=== PATIENT | male | born 1970 | race Hispanic/Latino ===

== ENCOUNTER 2017-04-27 11:53 | Emergency (ER) | payer MEDICAID ==
[2017-04-27 12:07] VITALS: RESP 18; O2SAT 98
[2017-04-27] MEDS ORDERED: DiphenhydrAMINE 50 mg/ml Inj ONE (12:13)
[2017-04-27] MEDS ORDERED: Sodium Chloride 0.9% 1,000 ML IV ONE (12:17)
[2017-04-27] MEDS ORDERED: DiphenhydrAMINE 50 mg/ml Inj IVP STA (12:19)
--- NOTE | 2017-04-27 12:28 | C.PDOC ---
History Of Present Illness 46 yr old male presents to the ER for evaluation of sudden onset of generalized itchiness, associated with redness of the skin which started 20 minutes after eating breakfast. Patient denies history of allergic reaction to food, or eating new foods. Patient states he took 1 dose of unknown antibiotic for " tooth pain" this AM prior to breakfast. Patient denies fever, chills, headache, dizziness, mouth swelling, throat swelling, throat tightness, coughing, chest pain, SOB, wheezing, nausea, vomiting, weakness or numbness. Ambulate to ED for evaluation, not in resp. distress. Time Seen by Provider: 04/27/17 12:11 Chief Complaint (Nursing): Allergic Reaction History Per: Patient History/Exam Limitations: no limitations Onset/Duration Of Symptoms: Sudden Onset Possible Cause: Medication (Unknown antibiotic) Past Medical History Reviewed: Historical Data, Nursing Documentation, Vital Signs Vital Signs: Last Vital Signs Temp 98.6 F 04/27/17 13:00 Pulse 68 04/27/17 13:00 Resp 18 04/27/17 13:00 BP 124/80 04/27/17 13:00 Pulse Ox 98 04/27/17 13:00 Family History: States: No Known Family Hx - Social History Hx Alcohol Use: No Hx Substance Use: No - Immunization History Hx Tetanus Toxoid Vaccination: No Hx Influenza Vaccination: No Hx Pneumococcal Vaccination: No Review Of Systems Except As Marked, All Systems Reviewed And Found Negative. Constitutional: Negative for: Fever, Chills ENT: Negative for: Mouth Swelling, Throat Swelling Cardiovascular: Negative for: Chest Pain Respiratory: Negative for: Cough, Shortness of Breath, Wheezing Gastrointestinal: Negative for: Nausea, Vomiting Skin: Positive for: Rash (Generalized itchy and redness.) Neurological: Negative for: Weakness, Numbness Physical Exam - Physical Exam Appears: Non-toxic, No Acute Distress Skin: Warm, Dry, Other ((+) Generalized skin erythema. No edema.) Head: Normacephalic Eye(s): bilateral: PERRL Ear(s): Bilateral: Normal Nose: No Flaring, No Discharge Oral Mucosa: Moist, No Drooling Tongue: Normal Appearing, No Swelling Lips: Normal Appearing, No Swelling Throat: No Erythema, No Exudate, No Drooling, Other (Uvula midline, no edema.) Neck: Trachea Midline, Supple Chest: Symmetrical, No Tenderness Cardiovascular: Rhythm Regular, No Murmur Respiratory: No Decreased Breath Sounds, No Rales, No Rhonchi, No Stridor, No Wheezing Gastrointestinal/Abdominal: Soft, No Tenderness Back: No CVA Tenderness Extremity: Normal ROM, No Pedal Edema, No Swelling Neurological/Psych: Oriented x3, Normal Speech, Normal Motor, Normal Sensation, Normal Reflexes ED Course And Treatment O2 Sat by Pulse Oximetry: 98 (RA) Pulse Ox Interpretation: Normal Progress Note: On re-evaluation, pt is afebrile, hemodynamicaly stable. non- toxic. Tolerate Po well in ED. Pt reports moderate improvement in sx. PulsEOx 98% RA. Skin: moderate improvement in generalized body erythema, almost cleared skin. No cellulitis. ENT: no acute findings. Uvula midline, no edema. No drooling. neck: Supple, (-) JVD. Lungs: CTA B/L, BS equal B/L. CVS: (+) S1S2, reg. Abd: benign. Neurologicaly intact. Pt has clinical findings c/w diffuse urticaria likely sec to antibiotic use. Pt advised and ref to F/u with PMD, Classifier Tender in 2-3 days for re-eavl. return to ED if any oorsening or new changes. Pt understand and agrees with discharges. Medical Decision Making Medical Decision Making: PLAN: * Benadryl IVP * Pepcid IVP * Prednisolone IVP * Sodium Chloride IV Disposition Counseled Patient/Family Regarding: Diagnosis, Need For Followup, Rx Given - Disposition Referrals: [facility] at [facility] [Outside] Disposition Time: 13:36 Condition: STABLE Additional Instructions: STOP ANTIBIOTIC IMMEDIATELY AND AVOID IN FUTURE DUE TO SEVERE ALLERGIC REACTION TAKE MEDICATION PRESCRIBED FOLLOW UP WITH PMD, [facility] IN 2-3 DAYS FOR RE-EVALUATION. RETURN TO ED IF ANY WORSENING OR NEW CHANGES. Prescriptions: DiphenhydrAMINE [Benadryl] 25 mg PO BID #10 cap Famotidine [Pepcid] 20 mg PO BID #10 tab Prednisone [Deltasone] 60 mg PO DAILY #9 tablet Instructions: Urticaria (GEN), Allergies (ED) Forms: [employer] (Armenian) - Clinical Impression Clinical Impression: Allergic urticaria - PA / CERTIFIED RECREATIONAL THERAPIST / Resident Statement MD/DO has reviewed & agrees with the documentation as recorded. - Scribe Statement The provider has reviewed the documentation as recorded by the Scribtiffanie Larose All medical record entries made by the Ely were at my direction and personally dictated by me. I have reviewed the chart and agree that the record accurately reflects my personal performance of the history, physical exam, medical decision making, and the department course for this patient. I have also personally directed, reviewed, and agree with the discharge instructions and disposition.
[2017-04-27] MEDS ORDERED: Albuterol-Ipratrop 3 mg / 0.5 (3 ml) UD ONE (12:34)
[2017-04-27] MEDS ORDERED: Sodium Chloride 0.9% 1,000 ML ONE (12:38)
[2017-04-27 13:01] VITALS: TEMP 98.6
[2017-04-27 14:39] VITALS: BP 124/75; PULSE 75
== END 2017-04-27 14:39 | disposition home or self-care (01) ==
LOC: C.ER 11:53
DX: L50.0 Allergic urticaria (principal)
CPT/HCPCS: 96361; 96374; 96375; 99284; J1200; J2930; J7040

== ENCOUNTER 2017-08-06 09:55 | Emergency (ER) | payer MEDICAID ==
--- NOTE | 2017-08-06 11:06 | C.PDOC ---
History Of Present Illness 47yo male with no known cardiac history, presents to ER with complaint of chest pain. Contrary to triage note, patient reports his chest pain has been present for the past 4 days. He states the pain comes and goes, but is more frequent now. He reports the pain is 5/10 and worsens when he twists his torso or takes a deep breath. He reports similar instances of pain in the past but states this instance is the longest and most painful. He denies nausea, vomiting, diarrhea, diaphoresis, SOB, injury or trauma to his chest; also denies lifting heavy objects recently. Time Seen by Provider: 08/06/17 10:28 Chief Complaint (Nursing): Chest Pain History Per: Patient History/Exam Limitations: no limitations Onset/Duration Of Symptoms: Days (4), Intermittent Episodes Current Symptoms Are (Timing): Still Present Pain Scale Rating Of: 5 Quality: "Pain" Exacerbating Factors: Turning, Deep Breathing Additional History Per: Patient Past Medical History Reviewed: Historical Data, Nursing Documentation, Vital Signs Vital Signs: Last Vital Signs Temp 98 F 08/06/17 12:04 Pulse 73 08/06/17 12:04 Resp 17 08/06/17 12:04 BP 125/85 08/06/17 12:04 Pulse Ox 97 08/07/17 21:25 - Medical History PMH: Hepatitis (Hep C) Surgical History: No Surg Hx Family History: States: CAD (father) - Social History Hx Tobacco Use: Yes (smoker for 30 years, 6 cigarettes a day) Hx Alcohol Use: No Hx Substance Use: No - Immunization History Hx Tetanus Toxoid Vaccination: No Hx Influenza Vaccination: No Hx Pneumococcal Vaccination: No Review Of Systems Except As Marked, All Systems Reviewed And Found Negative. Cardiovascular: Positive for: Chest Pain Respiratory: Negative for: Shortness of Breath Physical Exam - Physical Exam Appears: Non-toxic, No Acute Distress Skin: Normal Color, Warm, No Rash Head: Atraumatic, Normacephalic Eye(s): bilateral: Normal Inspection, PERRL, EOMI Oral Mucosa: Moist Neck: Normal ROM, Supple Chest: Symmetrical, No Tenderness, No Ecchymosis, No Subcutaneous Emphysema Cardiovascular: Rhythm Regular, No Friction Rub, No Murmur Respiratory: Normal Breath Sounds, No Rales, No Rhonchi, No Wheezing Gastrointestinal/Abdominal: Normal Exam, Soft, No Tenderness Back: Normal Inspection, No CVA Tenderness Extremity: Normal ROM, No Swelling Neurological/Psych: Oriented x3, Normal Speech, Normal Cognition, Normal Motor Gait: Steady ED Course And Treatment - Laboratory Results Result Diagrams: 08/06/17 11:05 08/06/17 11:05 ECG: Interpreted By Me, Viewed By Me ECG Rhythm: Sinus Rhythm ECG Interpretation: Normal Interpretation Of ECG: Normal axis Rate From EC (BPM) O2 Sat by Pulse Oximetry: 97 (RA) Pulse Ox Interpretation: Normal - Other Rad CXR X-Ray: Viewed By Me, Read By Radiologist Interpretation: HISTORY: chest pain. COMPARISON: None available. TECHNIQUE: Chest, one view. FINDINGS: LUNGS: No focal consolidation. Please note that chest x-ray has limited sensitivity for the detection of pulmonary masses. PLEURA: No significant pleural effusion identified. No definite pneumothorax . CARDIOVASCULAR: The cardiomediastinal silhouette appears within normal limits of size. OSSEOUS STRUCTURES: No acute osseous abnormality identified. VISUALIZED UPPER ABDOMEN: Unremarkable. OTHER FINDINGS: None. IMPRESSION: No focal consolidation, significant pleural effusion, or definite pneumothorax identified. Medical Decision Making Medical Decision Making: Plan: -- EKG -- CXR -- Labs Time: 1156 Labs reviewed and within normal limits. Patient has been having symptoms greater than 3 days and patient's symptoms are pleuritic in nature. CXR reviewed and shows no acute disease. On re-exam, the patient reports improvement of symptoms. Lungs are CTA, heart is RRR, abdomen is soft, non- tender and tolerating PO well. Ambulatory in the ED steady gait. Follow up with the medical doctor within 1-2 days. Return if worsened. Disposition - Disposition Referrals: [facility] at [facility] [Outside] Disposition: HOME/ ROUTINE Disposition Time: 12:07 Condition: GOOD Additional Instructions: Follow up with the medical doctor within 1-2 days withotu fail, return if worsened,. Prescriptions: Naproxen [Naprosyn] 500 mg PO BID #20 tab Instructions: Costochondritis Forms: [employer] (Nigerian) - Clinical Impression Clinical Impression: Pleuritic pain, Costochondritis - PA / RAISED PRINTER / Resident Statement MD/DO has reviewed & agrees with the documentation as recorded. - Scribe Statement The provider has reviewed the documentation as recorded by the Scribe (Serena Zuniga) Provider Attestation: All medical record entries made by the Scribe were at my direction and personally dictated by me. I have reviewed the chart and agree that the record accurately reflects my personal performance of the history, physical exam, medical decision making, and the department course for this patient. I have also personally directed, reviewed, and agree with the discharge instructions and disposition.
[2017-08-06 11:10] LABS: BASO % 0.5 % (0.0-2.0); EOS # 0.1 K/uL (0.0-0.7); EOS % 1.5 % (0.0-4.0); HEMOGLOBIN 17.2 g/dL (12.0-18.0); LYMPH # 2.3 K/uL (1.0-4.3); LYMPH % 34.9 % (20.0-40.0); MEAN CELL VOLUME 94.8 fL (80.0-94.0); MEAN CORPUSCULAR HGB CONC 34.8 g/dL (33.0-37.0); MEAN PLATELET VOLUME 8.4 fL (7.2-11.7); MONO # 0.7 K/uL (0.0-0.8); MONO % 10.7 % (0.0-10.0); NEUT # 3.5 K/uL (1.8-7.0); NEUT % 52.4 % (50.0-75.0); NRBC % 0.1 % (0.0-2.0); RBC 5.22 Mil/uL (4.40-5.90); RED CELL DISTRIBUTION WIDTH 12.9 % (11.5-14.5); WHITE BLOOD COUNT 6.7 K/uL (4.8-10.8)
[2017-08-06 11:23] LABS: ALB/GLOB RATIO 1.1 (1.0-2.1); ALBUMIN 4.4 g/dL (3.5-5.0); ALT/SGPT 69 U/L (21-72); AST/SGOT 69 U/L (17-59); BLOOD UREA NITROGEN 14 mg/dL (9-20); CALCIUM 9.9 mg/dl (8.6-10.4); GFR AFRICAN-AMERICAN > 60; GFR NON-AFRICAN AMERICAN > 60
[2017-08-06 11:35] LABS: B-TYPE NATRIURETIC PEPTIDE 22.6 pg/mL (0-450)
--- NOTE | 2017-08-06 11:50 | RAD ---
HISTORY: chest pain COMPARISON: None available. TECHNIQUE: Chest, one view. FINDINGS: LUNGS: No focal consolidation. Please note that chest x-ray has limited sensitivity for the detection of pulmonary masses. PLEURA: No significant pleural effusion identified. No definite pneumothorax . CARDIOVASCULAR: The cardiomediastinal silhouette appears within normal limits of size. OSSEOUS STRUCTURES: No acute osseous abnormality identified. VISUALIZED UPPER ABDOMEN: Unremarkable. OTHER FINDINGS: None. IMPRESSION: No focal consolidation, significant pleural effusion, or definite pneumothorax identified.
[2017-08-06 12:05] VITALS: BP 125/85; PULSE 73; RESP 17; TEMP 98
[2017-08-06 12:10] VITALS: O2SAT 97
--- NOTE | 2017-08-07 20:11 | CARD ---
APPROVED REPORT EKG Measurement Heart [id number] <Conclusion> Normal sinus rhythm Normal ECG
== END 2017-08-06 12:38 | disposition home or self-care (01) ==
LOC: C.ER 09:55
DX: M94.0 Chondrocostal junction syndrome [Tietze] (principal); R07.81 Pleurodynia
CPT/HCPCS: 71045; 80053; 83880; 84484; 85025; 93005; 96374; 99284; J1885

== ENCOUNTER 2017-08-24 19:49 | Emergency (ER) | payer MEDICAID ==
[2017-08-24 19:56] VITALS: BP 156/95; PULSE 84; RESP 20; TEMP 98; O2SAT 95
--- NOTE | 2017-08-24 20:41 | C.PDOC ---
History Of Present Illness 47 y/o male presents to the ED complaining of back pain s/p fall around 5PM today. States he was 2 steps up on ladder, lifting a 5 gallon can of paint, when he turned and felt a sharp pain in his back. This caused him to fall off the ladder and land on buttocks, falling backwards onto his back. Pain is non- radiating. No numbness, tingling, or incontinence of bowel/bladder. Patient took 2 tabs of Advil with minimal relief. No head trauma or LOC. Time Seen by Provider: 08/24/17 19:57 Chief Complaint (Nursing): Back Pain History Per: Patient History/Exam Limitations: no limitations Onset/Duration Of Symptoms: Hrs Current Symptoms Are (Timing): Still Present Past Medical History Reviewed: Historical Data, Nursing Documentation, Vital Signs Vital Signs: Last Vital Signs Temp 98 F 08/24/17 19:51 Pulse 84 08/24/17 19:51 Resp 20 08/24/17 19:51 BP 156/95 H 08/24/17 19:51 Pulse Ox 95 08/24/17 20:44 - Medical History PMH: Hepatitis (Hep C) Other Surgeries: "Skull surgery" Family History: States: CAD (father) - Social History Hx Tobacco Use: Yes (smoker for 30 years, 6 cigarettes a day) Hx Alcohol Use: No Hx Substance Use: No - Immunization History Hx Tetanus Toxoid Vaccination: No Hx Influenza Vaccination: No Hx Pneumococcal Vaccination: No Review Of Systems Genitourinary: Negative for: Incontinence Musculoskeletal: Positive for: Back Pain. Negative for: Neck Pain Neurological: Negative for: Weakness, Numbness (and tingling), Headache, Other ( LOC) Physical Exam - Physical Exam Appears: No Acute Distress Skin: No Rash Head: Atraumatic, Normacephalic Eye(s): bilateral: PERRL, EOMI Oral Mucosa: Moist Neck: Normal ROM, No Midline Cervical Tenderness, No Paracervical Tenderness, Supple Chest: No Tenderness Cardiovascular: Rhythm Regular, No Murmur Respiratory: No Rales, No Rhonchi, No Wheezing, Other (Lungs clear to auscultation) Back: No Vertebral Tenderness, Muscle Spasm (right paralumbar), Paraspinal Tenderness (to the right paralumbar area) Extremity: No Calf Tenderness, No Swelling Neurological/Psych: Normal Speech, Normal Cranial Nerves, Normal Motor, Normal Sensation, Other (Alert, no focal deficits) ED Course And Treatment O2 Sat by Pulse Oximetry: 95 (RA) Pulse Ox Interpretation: Normal Medical Decision Making Medical Decision Making: Time: 20:26 Plan: Toradol and Flexeril given in the ED. Disposition Counseled Patient/Family Regarding: Diagnosis, Need For Followup, Rx Given - Disposition Referrals: [facility] [Outside] Disposition: HOME/ ROUTINE Disposition Time: 20:53 Condition: GOOD Additional Instructions: Please take medication as prescribed. Do not drive, work or operate machinery while taking muscle relaxant. When you go back to work, take it at bedtime only. Cold compresses to lower back for the first 24 hours, then switch to warm compresses. No heavy lifting. Follow up with your doctor in a few days. Return to ER for any worse symptoms. Prescriptions: Cyclobenzaprine [Cyclobenzaprine HCl] 10 mg PO Q8 #9 tab Ibuprofen [Motrin] 600 mg PO TID #30 tab Instructions: Muscle Spasms (DC) Forms: [employer] (Slovenian) - Clinical Impression Clinical Impression: Lumbar paraspinal muscle spasm - PA / SOCIAL PROFESSIONALS / Resident Statement MD/DO has reviewed & agrees with the documentation as recorded. - Scribe Statement The provider has reviewed the documentation as recorded by the Scribe (Ruth Leger) All medical record entries made by the Scribe were at my direction and personally dictated by me. I have reviewed the chart and agree that the record accurately reflects my personal performance of the history, physical exam, medical decision making, and the department course for this patient. I have also personally directed, reviewed, and agree with the discharge instructions and disposition.
== END 2017-08-24 21:12 | disposition home or self-care (01) ==
LOC: C.ER 19:49
DX: M62.830 Muscle spasm of back (principal); F17.210 Nicotine dependence, cigarettes, uncomplicated
CPT/HCPCS: 96372; 99282; J1885